=== PATIENT | female | born 1945 | race Caucasian/White ===

== ENCOUNTER 2017-12-05 14:35 | Outpatient (CLI) | payer MEDICARE | END 2017-12-05 14:36 | disposition home or self-care (01) | LOC: BICMAMMO 14:35 | PROVIDERS: ATTEND Family Medicine | DX: Z13.820 Encounter for screening for osteoporosis (principal); M85.80 Other specified disorders of bone density and structure, unspecified site; Z78.0 Asymptomatic menopausal state; Z12.31 Encounter for screening mammogram for malignant neoplasm of breast | CPT/HCPCS: 77063; 77067; 77080 ==

== ENCOUNTER 2018-04-12 20:30 | Outpatient (CLI) | payer MEDICARE | END 2018-04-12 20:31 | disposition home or self-care (01) | LOC: SLEEPLAB 20:30 | PROVIDERS: ATTEND Family Medicine | DX: G47.33 Obstructive sleep apnea (adult) (pediatric) (principal) | CPT/HCPCS: 95811 ==

== ENCOUNTER 2018-12-23 14:10 | Emergency (ER) | payer MEDICARE ==
[2018-12-23 14:57] LABS: Bilirubin Negative (Negative); Blood, Urine Trace (Negative); Clarity Slightly Cloudy (Clear); Glucose, Urine (Dipstick) Negative (Negative); Leukocyte Trace (Negative); Nitrite Negative (Negative); Protein, Urine (Dipstick) Trace mg/dL (Neg-Trace); Specific Gravity, Urine 1.015 (1.005-1.030); Urobilinogen 0.2 mg/dL (0.2-1.0)
[2018-12-23 14:59] LABS: Bacteria/HPF Rare-Few HPF (None Seen); RBC/HPF 0-3 HPF (0-3); Squamous Epithelial 0-3 HPF (0-3); WBC/HPF 0-3 HPF (0-3)
--- NOTE | 2018-12-23 15:18 | RAD ---
RIGHT FOOT 3 VIEWS: Date: 12/23/18 HISTORY: Foot pain. No history of injury. FINDINGS: There are arthritic changes of the first metatarsophalangeal joint and base of metatarsal. There are no signs of fracture or any other acute bony findings. IMPRESSION: No acute bony findings. POS: MEENA
== END 2018-12-23 15:27 | disposition home or self-care (01) ==
LOC: SCSER 14:10
DX: L03.115 Cellulitis of right lower limb (principal); E78.5 Hyperlipidemia, unspecified; I10 Essential (primary) hypertension; Z79.899 Other long term (current) drug therapy
CPT/HCPCS: 81003; 81015; 87086

== ENCOUNTER 2019-03-15 00:09 | Outpatient (CLI) | payer MEDICARE ==
[2019-03-15 09:48] LABS: #Eosinphils 0.2 thou/uL (0.0-0.7); #Monocytes 0.5 thou/uL (0.11-0.59); #Neutrophils 5.5 thou/uL (1.40-6.50); %Basophils 0.5 % (0.0-1.0); %Eosinophils 2.7 % (0.0-10.0); %Lymphocytes 24.3 % (21.0-51.0); %Monocytes 6.1 % (0.0-10.0); %Neutrophils 66.4 % (42.0-75.0); Hemoglobin 12.6 g/dL (12.0-16.0); Mean Corpuscular HGB CONC 32.7 g/dL (32.0-36.0); Mean Corpuscular Hemoglobin 29.7 pg (27.0-31.0); Mean Corpuscular Volume 90.8 fL (78.0-98.0); Mean Platelet Volume 9.9 fL (7.4-10.4); Platelet Count 213 thou/uL (130-400); Red Blood Cell (RBC) Count 4.24 mill/uL (4.20-5.40); White Blood Cell (WBC) Count 8.2 thou/uL (4.8-10.8)
[2019-03-15 09:49] LABS: Bilirubin Negative (Negative); Blood, Urine Negative (Negative); Clarity CLEAR (Clear); Glucose, Urine (Dipstick) Negative (Negative); Leukocyte Small (Negative); Nitrite Negative (Negative); Protein, Urine (Dipstick) Negative (Neg-Trace); Specific Gravity, Urine 1.013 (1.002-1.036); Urobilinogen 0.2 mg/dL (0.2-1.0); pH, Urine 5.5 (5.0-9.0)
[2019-03-15 09:52] LABS: Bacteria/HPF None Seen HPF (None Seen); Hyaline Casts/LPF 0-3 HYALINE CAST LPF (0-3 Hyaline); Pathc Cast-AUWi Flag 0.13 (0-2.49); RBC/HPF 0-3 HPF (0-3); Squamous Epithelial None Seen HPF (0-3); WBC/HPF 0-3 HPF (0-3)
[2019-03-15 09:56] LABS: Prothrombin Time 12.9 SEC (12.0-14.7)
[2019-03-15 10:09] LABS: Anion Gap 11 mmol/L (10-20); BUN (Urea Nitrogen) 21 mg/dL (9.8-20.1); Calc. Creatinine Clearance 0 mL/min (70-130); Calcium 10.1 mg/dL (7.8-10.44); Carbon Dioxide 28 mmol/L (23-31); Chloride 104 mmol/L (98-107); Estimated GFR-MDRD 57; Glucose 89 mg/dL (83-110); Potassium 3.8 mmol/L (3.5-5.1); Sodium 139 mmol/L (136-145)
--- NOTE | 2019-03-15 12:35 | RAD ---
XR Chest Pa Lat STANDARD HISTORY: Preoperative evaluation COMPARISON: None FINDINGS: The heart size is normal. The lungs are well expanded without focal areas of consolidation, pneumothorax or pleural effusions. IMPRESSION: No radiographic evidence of acute cardiopulmonary process.
--- NOTE | 2019-03-16 07:20 | EKG ---
Test Reason : Blood Pressure : / mmHG Vent. Rate : 059 BPM Atrial Rate : 059 BPM P-R Int : 162 ms QRS Dur : 084 ms QT Int : 410 ms P-R-T Axes : 066 016 040 degrees QTc Int : 405 ms Sinus bradycardia Normal ECG When compared with ECG of 22-MAY-2017 12:39, (Unconfirmed) No significant change was found Confirmed by ANDRES RAMÍREZ ([id number]) on 03/16/2019 7:20:31 AM Referred By: HARRY Confirmed By:ANDRES RAMÍREZ
== END 2019-03-15 00:10 | disposition home or self-care (01) ==
LOC: LABBT 00:09
PROVIDERS: ATTEND Orthopaedic Surgery
DX: Z01.818 Encounter for other preprocedural examination (principal); M17.12 Unilateral primary osteoarthritis, left knee
CPT/HCPCS: 71046; 80048; 81001; 85025; 85610; 85730; 87081; 93005; 93010

== ENCOUNTER 2019-04-17 08:56 | Inpatient (IN) | payer MEDICARE ==
[2019-03-15 09:39] VITALS: BMI 27.2
[2019-04-17] MEDS ORDERED: Bupivacaine/Epinephrine 0.25% 30 ML VIAL ONE (09:06)
[2019-04-17] MEDS ORDERED: Vancomycin HCl 1.5 GM in Sodium Chloride 0.9% 250 ML 300 ML IVPB SCH ×2 (09:30→22:00)
[2019-04-17] MEDS ORDERED: CEFAZOLIN 2 GM in Premix Bag 1 BAG IVPB SCH (09:30)
[2019-04-17] MEDS ORDERED: Tranexamic Acid 1,000 MG in Sodium Chloride 0.9% 100 ML IVPB SCH ×2 (09:30→12:15)
[2019-04-17 09:38] LABS: #Eosinphils 0.1 thou/uL (0.0-0.7); #Lymphocytes 1.3 thou/uL (1.20-3.40); #Monocytes 0.5 thou/uL (0.11-0.59); #Neutrophils 5.3 thou/uL (1.40-6.50); %Basophils 0.3 % (0.0-1.0); %Eosinophils 1.9 % (0.0-10.0); %Lymphocytes 17.7 % (21.0-51.0); %Monocytes 7.2 % (0.0-10.0); %Neutrophils 72.9 % (42.0-75.0); Hemoglobin 11.8 g/dL (12.0-16.0); Mean Corpuscular HGB CONC 34.1 g/dL (32.0-36.0); Mean Corpuscular Hemoglobin 30.8 pg (27.0-31.0); Mean Corpuscular Volume 90.3 fL (78.0-98.0); Mean Platelet Volume 9.4 fL (7.4-10.4); Platelet Count 203 thou/uL (130-400); RBC Distribution Width 12.7 % (11.5-14.5); Red Blood Cell (RBC) Count 3.83 mill/uL (4.20-5.40); White Blood Cell (WBC) Count 7.3 thou/uL (4.8-10.8)
[2019-04-17] MEDS ORDERED: Midazolam HCl 2 mg/2 ml Vial ONE (09:46)
[2019-04-17 09:47] LABS: Prothrombin Time 13.6 SEC (12.0-14.7)
[2019-04-17] MEDS ORDERED: Fentanyl 100 MCG/2 ML VIAL ONE ×2 (09:47→12:46)
[2019-04-17] MEDS ORDERED: Sodium Chloride 0.9% 100 ML ONE (09:50)
[2019-04-17] MEDS ORDERED: Tranexamic Acid 1,000 MG/10 ML VIAL ONE ×2 (09:50→12:41)
[2019-04-17 09:59] LABS: Anion Gap 13 mmol/L (10-20); BUN (Urea Nitrogen) 14 mg/dL (9.8-20.1); Calc. Creatinine Clearance 70 mL/min (70-130); Carbon Dioxide 26 mmol/L (23-31); Chloride 103 mmol/L (98-107); Estimated GFR-MDRD 57; Glucose 88 mg/dL (83-110); Potassium 3.9 mmol/L (3.5-5.1); Sodium 138 mmol/L (136-145)
[2019-04-17] MEDS ORDERED: Ketorolac Tromethamine 30 MG/ML VIAL IVP PRN ×2 (10:51→13:50)
[2019-04-17] MEDS ORDERED: Fentanyl 100 MCG/2 ML VIAL IV PRN (10:51)
[2019-04-17] MEDS ORDERED: Ondansetron PF 4 MG/2 ML Vial IVP PRN ×2 (10:51→13:50)
[2019-04-17] MEDS ORDERED: Zolpidem Tartrate 5 MG TAB PO PRN ×2 (10:51→13:50)
[2019-04-17] MEDS ORDERED: traMADol HCl 50 MG TAB PO PRN (10:51)
[2019-04-17] MEDS ORDERED: Promethazine HCl 25 MG/ML VIAL IM PRN ×3 (10:51→13:50)
[2019-04-17] MEDS ORDERED: Ropivacaine HCl/PF 250 ML in Premix Bag 1 BAG NERVE BLCK SCH (10:51)
[2019-04-17] MEDS ORDERED: Morphine 10 MG/ML VIAL ONE (11:01)
[2019-04-17] MEDS ORDERED: Promethazine HCl 25 MG/ML VIAL SLOW IVP PRN (11:11)
[2019-04-17] MEDS ORDERED: Ondansetron HCl/PF 4 MG/2 ML Vial IVP PRN (11:11)
[2019-04-17] MEDS ORDERED: Ropivacaine 0.5% HCl/PF (150 MG/30 ML VIAL) ONE (11:26)
[2019-04-17] MEDS ORDERED: Ropivacaine 0.2% HCl/PF (40 MG/20 ML VIAL) ONE (11:26)
[2019-04-17 11:35] LABS: Bilirubin Negative (Negative); Blood, Urine Negative (Negative); Clarity CLEAR (Clear); Glucose, Urine (Dipstick) Negative (Negative); Leukocyte Negative (Negative); Nitrite Negative (Negative); Protein, Urine (Dipstick) Negative (Neg-Trace); Specific Gravity, Urine 1.011 (1.002-1.036); Urobilinogen 0.2 mg/dL (0.2-1.0)
[2019-04-17 11:39] LABS: Bacteria/HPF None Seen HPF (None Seen); Hyaline Casts/LPF 0-3 HYALINE CAST LPF (0-3 Hyaline); Pathc Cast-AUWi Flag 0.27 (0-2.49); RBC/HPF 0-3 HPF (0-3); Squamous Epithelial None Seen HPF (0-3); WBC/HPF None Seen HPF (0-3)
[2019-04-17] MEDS ORDERED: Meperidine HCl/PF 25 MG/ML VIAL ONE (12:30)
--- NOTE | 2019-04-17 12:55 | RAD ---
LEFT KNEE 2 VIEWS: HISTORY: Total knee arthroplasty, postop FINDINGS: There are recent postoperative changes of total knee arthroplasty in good position and alignment. Sof t tissue air is present.
[2019-04-17] MEDS ORDERED: Lidocaine 1% PF 5 ML VIAL ONE (12:58)
[2019-04-17] MEDS ORDERED: PROPOFOL 200 MG/20 ML VIAL ONE (12:58)
[2019-04-17] MEDS ORDERED: Ondansetron PF 4 MG/2 ML Vial ONE (12:58)
[2019-04-17] MEDS ORDERED: Acetaminophen 325 MG TAB PO PRN (13:50)
[2019-04-17] MEDS ORDERED: diphenhydrAMINE 25 MG CAP PO PRN (13:50)
[2019-04-17] MEDS ORDERED: HYDROcodone/Acetaminophen 10/325 mg Tablet PO PRN ×2 (13:50)
[2019-04-17] MEDS ORDERED: Fentanyl 100 MCG/2 ML VIAL SLOW IVP PRN ×2 (13:50)
--- NOTE | 2019-04-17 14:19 | OP ---
DATE OF PROCEDURE: 04/17/2019 PREOPERATIVE DIAGNOSIS: Left knee valgus osteoarthritis. POSTOPERATIVE DIAGNOSIS: Left knee valgus osteoarthritis. PROCEDURE PERFORMED: Left total knee arthroplasty. BOTTLED BEVERAGE INSPECTOR: Dave Garcia PA-C ANESTHESIA: The patient received an LMA with an adductor canal catheter with a single shot lateral sciatic. ESTIMATED BLOOD LOSS: 100 mL. TOURNIQUET TIME: 74 minutes at 300 mmHg. ANTIBIOTICS: Ancef 2 g, vancomycin 1.5, TXA 1 g, and [place] tobramycin antibiotic Simplex one dose. IMPLANTS: Treasure size 5 CR femur, an 8 x 32 patella, a size 5 tibial base plate, and a 5 with 9 mm CS poly. COMPLICATIONS: None. INDICATIONS FOR PROCEDURE: Ms. Ortega is a pleasant 73-year-old female, who presents to me with several years of left knee pain. The patient had a valgus knee arthritis. She desired for left knee arthroplasty. She understood the risks and benefits of surgery to include pain, scar, bleeding, infection, damage to vital structures, decreased range of motion and strength, nonunion, malunion, fracture above or below the stem, further surgery, and loss of life or limb. The patient understood the risks and benefits of the procedure and elected to proceed. DESCRIPTION OF PROCEDURE: Time-out was performed designating the patient's left lower extremity as the operative site based on site, consents, and marking. After time-out, the patient's left lower extremity was prepped and draped in sterile fashion. The tourniquet was brought up and left up for a total of 74 minutes. Anterior midline incision was made. Medial patellar arthrotomy was performed. I excised the fat pad, exposed the tibia and femur, mapped out the femur cut, 0 degrees of varus and valgus, one laterally, eight medially, 4 degrees of slope. We placed our 3-degree external rotation guide and mapped it out. A 6 was just slightly too big and 5 left with a small notch. We felt like we had a good overall alignment. We cut for a 5, cut anterior, posterior and chamfer cuts, removed osteophytes, and exposed the patient's tibia. After we released the ACL and placed our pickle fork in position, we cut 0 degree of varus, 1 degree of valgus, and 4 degrees of posterior slope. We removed the osteophytes. We put a laminar aircraft time clerk removing the lateral meniscus. With the PCL released, we ensured we had overall good position of the patient's knee. We had good alignment. We then placed our size 5 tibial tray, which we had to float to good position based off our femur floated in position. We overall had good alignment, flexion and extension, varus and valgus stability. We then removed the cup in place, cut our patella down from about 24 down to about 13, placed an 8 x 32 patella with overall good alignment and tracking. We had to laterally smooth the osteophytes to help with our patellar tracking and then washed. We cemented our tibia and posterior poly, cemented our femur, and removed excess cement on both. We cemented our patella, removed excess cement, and washed. We ensured that all cement had been removed, came back, washed and closed with #2 Vicryl, 2 Quill, 0 Quill, 2-0 Stratafix, and glue. The patient will be admitted per [facility] protocol. Weightbearing as tolerated. We will follow her in-house. Job ID: [id number]
--- NOTE | 2019-04-17 15:25 | PDOC.EVN ---
Addendum - Attending - Attending Attestation Date/Time: 04/17/19 1520 I personally evaluated the patient and discussed the management with Dr. Berry. I agree with the History, Examination, Assessment and Plan documented in her consult note with any addition or exceptions noted below. Patient here for orthopedic surgery. We have been consulted for medical mgmt. Will resume home meds for chronic conditions and be available for acute changes to medical conditions as needed. Dispo per primary team and will anticipate patient being medically stable for dc whenever primary team is comfortable with discharge.
[2019-04-17] MEDS: Sodium Chloride 0.9% 1,000 ML IV SCH (15:50)
[2019-04-17] MEDS: HYDROcodone/Acetaminophen 10/325 mg Tablet PO PRN (18:03)
[2019-04-17] MEDS: CEFAZOLIN 2 GM in Premix Bag 1 BAG IVPB SCH (18:04)
[2019-04-17] MEDS: Aspirin 81 mg Enteric Coated Tablet PO SCH (19:58)
[2019-04-17] MEDS: Atorvastatin Calcium 10 MG TAB PO SCH ×2 (19:58)
--- NOTE | 2019-04-17 20:59 | CON ---
DATE OF CONSULTATION: 04/17/2019 We were consulted by Dr. Mccracken for medical management. I appreciate the opportunity to take care of this patient. HISTORY OF PRESENT ILLNESS: Stella Ortega is a 73-year-old female with past medical history of hypertension, hyperlipidemia, cluster headaches, obstructive sleep apnea, and peptic ulcer disease, who presented for a left total knee replacement. The patient had a left total knee replacement performed today by Dr. Mccracken with no complications noted during surgery. The patient reports that she is feeling well at this time with her pain very well controlled. The patient denies any other complaints today. REVIEW OF SYSTEMS: GENERAL: Denies fever or chills. EYES: Denies vision changes, eye pain HENT: Denies sore throat, rhinorrhea, or ear pain. CARDIOVASCULAR: Denies chest pain or edema. RESPIRATORY: Denies shortness of breath or cough. ABDOMEN: Denies abdominal pain, nausea, vomiting, or diarrhea. : Denies dysuria or hematuria. MUSCULOSKELETAL: Reports left knee pain. Denies other muscle aches or pains. NEUROLOGIC: Denies any weakness, numbness, syncope, seizures, or headaches. PSYCHIATRIC: Denies anxiety or depression. DERM: Denies new rashes or lesions PAST MEDICAL HISTORY: 1. Peptic ulcer disease. 2. Obstructive sleep apnea. 3. Cluster headaches. 4. Osteopenia. 5. Hyperlipidemia. 6. Hypertension. 7. Allergic rhinitis. PAST SURGICAL HISTORY: 1. Hysterectomy. 2. Appendectomy. 3. Tonsillectomy. 4. Left eye corneal transplant. 5. Left total knee replacement done on 04/17/2019. MEDICATIONS: 1. Omeprazole 40 mg p.o. daily. 2. Rizatriptan 10 mg p.o. p.r.n. headaches. 3. Atenolol 50 mg p.o. daily. 4. Zyrtec 10 mg p.o. daily. 5. Enalapril and hydrochlorothiazide 10/25 mg daily. 6. Simvastatin 20 mg p.o. at bedtime. 7. Potassium chloride 20 mEq daily. ALLERGIES: ERYTHROMYCIN BASE. FAMILY HISTORY: 1. Mother with coronary artery disease. 2. Father with hypertension. 3. Sister with liver cancer. SOCIAL HISTORY: The patient reports that she smoked in college, but denies any recent tobacco, alcohol, or drug use. The patient reports she lives alone. 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 PRIMARY CARE PHYSICIAN: Dr. Cain. PHYSICAL EXAMINATION: VITAL SIGNS: Blood pressure 157/84, pulse 75, respiratory rate 16, temperature 97.2, and O2 saturations 100% on 2 L nasal cannula. GENERAL: Alert, oriented, resting comfortably in bed, on 2 L nasal cannula. HEENT: Moist mucous membranes. Oropharynx, no erythema or exudates. NECK: Supple. No lymphadenopathy. No thyroid nodules or thyromegaly. CARDIOVASCULAR: Regular rate and rhythm. No murmurs, gallops, or rubs. No peripheral edema. 2+ radial and pedal pulses bilaterally. RESPIRATORY: No use of accessory muscles of respiration. Clear to auscultation bilaterally. No wheezes. ABDOMEN: No abdominal distention. Normoactive bowel sounds. No tenderness to palpation. No guarding. MUSCULOSKELETAL: Left knee with dressing wrap in place. Full range of motion of all other extremities. DERMATOLOGY: No abnormal rashes, lesions, bruising, or bleeding. PSYCHIATRIC: Euthymic mood. Congruent affect. Alert and oriented. NEUROLOGIC: Sensation grossly within normal limits. Motor 5/5 in all extremities. Cranial nerves 2 through 12 are intact. LABORATORY VALUES: White blood cells 7.3, hemoglobin 11.8, hematocrit 34.6, platelet count 203. PT 13.6, INR 1.0, PTT 33.0. Sodium 138, potassium 3.9, chloride 103, CO2 of 26, BUN 14, creatinine 0.95, GFR 57, glucose 88, calcium 10.0. Urinalysis within normal limits. IMAGING: Knee x-ray showed recent postoperative changes of total knee arthroplasty and good position and alignment. Soft tissue air present. ASSESSMENT AND PLAN: This is a 73-year-old female, whom we are consulted for medical management after a left total knee replacement. 1. Left total knee replacement. We will defer to primary team for pain management and postoperative management. 2. Hypertension. We will restart home enalapril and hydrochlorothiazide and monitor blood pressures closely. 3. Hyperlipidemia. We will restart home simvastatin. 4. Obstructive sleep apnea. The patient brought CPAP from home. We will restart this at bedtime. 5. Peptic ulcer disease. We will start pantoprazole. The patient with no complaints at this time. 6. Cluster headache. The patient denies any current headaches. We will treat if the patient develops one. This patient was seen and evaluated with Dr. Palmer, who agrees with the plan as stated above. We appreciate the opportunity to participate in the care of this patient. Job ID: [id number] MTDD
[2019-04-18] MEDS: Sodium Chloride 0.9% 1,000 ML IV SCH ×3 (01:34→20:45)
[2019-04-18] MEDS: CEFAZOLIN 2 GM in Premix Bag 1 BAG IVPB SCH (01:58)
[2019-04-18] MEDS: HYDROcodone/Acetaminophen 10/325 mg Tablet PO PRN ×3 (03:34→15:38)
[2019-04-18 05:53] LABS: Mean Corpuscular HGB CONC 31.7 g/dL (32.0-36.0); Mean Corpuscular Hemoglobin 29.3 pg (27.0-31.0); Mean Corpuscular Volume 92.4 fL (78.0-98.0); Mean Platelet Volume 10.1 fL (7.4-10.4); Platelet Count 152 thou/uL (130-400); RBC Distribution Width 12.7 % (11.5-14.5); Red Blood Cell (RBC) Count 3.42 mill/uL (4.20-5.40); White Blood Cell (WBC) Count 12.3 thou/uL (4.8-10.8)
[2019-04-18] MEDS: Potassium Chloride 20 MEQ TAB PO SCH ×2 (08:20→08:25)
[2019-04-18] MEDS: Atenolol 50 MG TAB PO SCH ×2 (08:20→08:23)
[2019-04-18] MEDS: Calcium Carbonate + Vit D 1 TAB PO SCH (08:21)
[2019-04-18] MEDS: Aspirin 81 mg Enteric Coated Tablet PO SCH ×2 (08:21→20:45)
[2019-04-18] MEDS: Ascorbic Acid 500 mg Chewable Tablet PO SCH (08:21)
[2019-04-18] MEDS: Hydrochlorothiazide 25 MG TAB PO SCH (08:21)
[2019-04-18] MEDS: Senokot S 8.6-50 MG TAB PO SCH ×2 (08:21→20:36)
[2019-04-18] MEDS: Ferrous Gluconate 324 MG TAB PO SCH ×2 (08:22→18:49)
[2019-04-18] MEDS: Fluorometholone 0.1% Ophth Soln 5 ml Bottle L EYE SCH (08:24)
[2019-04-18] MEDS: Multivitamin W/ Minerals 1 TAB PO SCH (08:25)
[2019-04-18] MEDS ORDERED: FLUOROMETHOLONE L EYE SCH (09:00)
[2019-04-18] MEDS ORDERED: DEXT R EYE SCH (09:00)
[2019-04-18] MEDS ORDERED: Non-Formulary Item 1 EACH (Enalapril/Hydrochlorothiazide [Enalapril-Hctz 10-25 Mg Tablet] PO SCH (09:00)
[2019-04-18] MEDS ORDERED: TETRAHYDRZ R EYE SCH (09:00)
[2019-04-18] MEDS ORDERED: PVP R EYE SCH (09:00)
[2019-04-18] MEDS ORDERED: PEG R EYE SCH (09:00)
--- NOTE | 2019-04-18 09:07 | PDOC.FM ---
- Subjective Subjective: Patient reports left knee pain. She was examined sitting up in the chair. She denies urinating since burnham catheter was removed. She is tolerating PO well, denies N/V. She reports that she slept well overnight. Denies headache, vision changes, chest pain, SOB. - Objective MAR Reviewed: Yes Vital Signs & Weight: Vital Signs (12 hours) Temp Pulse Resp BP BP Pulse Ox 04/18/19 08:23 84 138/55 L 04/18/19 08:22 98.3 F 84 20 138/55 L 93 L 04/18/19 08:20 98 04/18/19 04:19 99.3 F 98 16 120/56 L 93 L 04/18/19 00:37 98 F 70 16 117/47 L 98 Weight Weight 86.183 kg I&O: 04/17/19 04/18/19 04/19/19 06:59 06:59 06:59 Intake Total 1000 1010 Output Total 500 400 Balance 500 610 Result Diagrams: 04/18/19 05:12 04/17/19 09:31 Phys Exam - Physical Examination Constitutional: NAD HEENT: moist MMs, sclera anicteric Respiratory: no wheezing, no rales, no rhonchi, clear to auscultation bilateral Cardiovascular: RRR, no significant murmur, no rub Gastrointestinal: soft, non-tender, no distention, positive bowel sounds Musculoskeletal: no edema, pulses present dressing in place over left knee Neurological: non-focal, moves all 4 limbs Psychiatric: normal affect, A&O x 3 Skin: normal turgor, cap refill <2 seconds Dx/Plan (1) History of total left knee replacement (TKR) Code(s): Z96.652 - PRESENCE OF LEFT ARTIFICIAL KNEE JOINT Status: Acute Plan: Defer to primary team for post-op management and pain control -Continue PT/OT -Pt desires placement at [facility] after d/c for further PT (2) HTN (hypertension) Code(s): I10 - ESSENTIAL (PRIMARY) HYPERTENSION Status: Acute Plan: BP's WNL Restarted home enalapril-HCTZ and atenalol (3) CARMENZA (obstructive sleep apnea) Code(s): G47.33 - OBSTRUCTIVE SLEEP APNEA (ADULT) (PEDIATRIC) Status: Acute Plan: Plan to resume nighttime CPAP tonight (4) HLD (hyperlipidemia) Code(s): E78.5 - HYPERLIPIDEMIA, UNSPECIFIED Status: Acute Plan: Continue simvastatin (5) PUD (peptic ulcer disease) Code(s): K27.9 - PEPTIC ULC, SITE UNSP, UNSP AC OR CHR, W/O HEMOR OR PERF Status: Acute Plan: Continue protonix, asymptomatic currently (6) Cluster headache Status: Acute Qualifiers: Headache chronicity pattern: episodic headache Intractability: not intractable Qualified Code(s): G44.019 - Episodic cluster headache, not intractable Plan: No current symptoms. Will give triptan prn headache - Plan Plan: Dispo pending primary team Addendum - Attending - Attending Attestation Date/Time: 04/18/19 8556 I personally evaluated the patient and discussed the management with Dr. Brery. I agree with the History, Examination, Assessment and Plan documented above with any addition or exceptions noted below. L TKR- recovering well. HTN- stable CARMENZA-start CPAP tonight Goal is to transition to SNF.
[2019-04-18] MEDS: traMADol HCl 50 MG TAB PO PRN ×2 (11:12→18:48)
[2019-04-18] MEDS: Atorvastatin Calcium 10 MG TAB PO SCH ×2 (20:37)
[2019-04-19] MEDS: Sodium Chloride 0.9% 1,000 ML IV SCH ×2 (05:08→18:16)
[2019-04-19] MEDS: traMADol HCl 50 MG TAB PO PRN (05:20)
[2019-04-19 05:55] LABS: Mean Corpuscular HGB CONC 33.6 g/dL (32.0-36.0); Mean Corpuscular Hemoglobin 30.9 pg (27.0-31.0); Mean Corpuscular Volume 91.9 fL (78.0-98.0); Mean Platelet Volume 10.5 fL (7.4-10.4); Platelet Count 131 thou/uL (130-400); RBC Distribution Width 12.7 % (11.5-14.5); Red Blood Cell (RBC) Count 3.24 mill/uL (4.20-5.40); White Blood Cell (WBC) Count 14.3 thou/uL (4.8-10.8)
--- NOTE | 2019-04-19 08:54 | PDOC.FM ---
- Subjective Subjective: Patient reports her pain is a little improved, but she had very bad pain during PT yesterday. She slept well overnight and is tolerating PO well. Denies chest pain, SOB, H/A, vision changes, swelling. - Objective MAR Reviewed: Yes Vital Signs & Weight: Vital Signs (12 hours) Temp Pulse Resp BP Pulse Ox 04/19/19 08:23 98.6 F 97 16 137/73 97 04/19/19 04:08 99.4 F 96 16 152/74 H 93 L 04/19/19 00:21 98.5 F 89 16 146/75 H 93 L Weight Admit Weight 86.183 kg Weight 86.183 kg I&O: 04/18/19 04/19/19 04/20/19 06:59 06:59 06:59 Intake Total 1000 1510 Output Total 500 400 Balance 500 1110 Result Diagrams: 04/19/19 04:53 04/17/19 09:31 Phys Exam - Physical Examination Constitutional: NAD HEENT: moist MMs, sclera anicteric Neck: no nodes, supple Respiratory: no wheezing, no rales, no rhonchi, clear to auscultation bilateral Cardiovascular: RRR, no significant murmur, no rub Gastrointestinal: soft, non-tender, no distention, positive bowel sounds Musculoskeletal: no edema, pulses present dressing in place over left knee Neurological: non-focal, moves all 4 limbs Psychiatric: normal affect, A&O x 3 Skin: normal turgor, cap refill <2 seconds Dx/Plan (1) History of total left knee replacement (TKR) Code(s): Z96.652 - PRESENCE OF LEFT ARTIFICIAL KNEE JOINT Status: Acute Plan: Defer to primary team for post-op management and pain control -Continue PT/OT -Pt desires placement at [facility] after d/c for further PT (2) HTN (hypertension) Code(s): I10 - ESSENTIAL (PRIMARY) HYPERTENSION Status: Acute Plan: BP's WNL Restarted home enalapril-HCTZ and atenalol (3) CARMENZA (obstructive sleep apnea) Code(s): G47.33 - OBSTRUCTIVE SLEEP APNEA (ADULT) (PEDIATRIC) Status: Acute Plan: Continue CPAP at night (4) HLD (hyperlipidemia) Code(s): E78.5 - HYPERLIPIDEMIA, UNSPECIFIED Status: Acute Plan: Continue simvastatin (5) PUD (peptic ulcer disease) Code(s): K27.9 - PEPTIC ULC, SITE UNSP, UNSP AC OR CHR, W/O HEMOR OR PERF Status: Acute Plan: Continue protonix, asymptomatic currently (6) Cluster headache Status: Acute Qualifiers: Headache chronicity pattern: episodic headache Intractability: not intractable Qualified Code(s): G44.019 - Episodic cluster headache, not intractable Plan: No current symptoms. Will give triptan prn headache Addendum - Attending - Attending Attestation Date/Time: 04/19/19 9472 I personally evaluated the patient and discussed the management with Dr. Berry I agree with the History, Examination, Assessment and Plan documented above with any addition or exceptions noted below.
[2019-04-19] MEDS: Senokot S 8.6-50 MG TAB PO SCH ×2 (09:12→21:25)
[2019-04-19] MEDS: Calcium Carbonate + Vit D 1 TAB PO SCH (09:12)
[2019-04-19] MEDS: Atenolol 50 MG TAB PO SCH ×2 (09:12→09:18)
[2019-04-19] MEDS: Potassium Chloride 20 MEQ TAB PO SCH ×2 (09:13→09:18)
[2019-04-19] MEDS: Aspirin 81 mg Enteric Coated Tablet PO SCH ×2 (09:13→21:25)
[2019-04-19] MEDS: HYDROcodone/Acetaminophen 10/325 mg Tablet PO PRN ×2 (09:13→18:17)
[2019-04-19] MEDS: Ascorbic Acid 500 mg Chewable Tablet PO SCH (09:13)
[2019-04-19] MEDS: Multivitamin W/ Minerals 1 TAB PO SCH (09:13)
[2019-04-19] MEDS: Ferrous Gluconate 324 MG TAB PO SCH ×2 (09:14→18:17)
[2019-04-19] MEDS: Fluorometholone 0.1% Ophth Soln 5 ml Bottle L EYE SCH (09:18)
[2019-04-19] MEDS: Hydrochlorothiazide 25 MG TAB PO SCH (09:18)
[2019-04-19] MEDS: Atorvastatin Calcium 10 MG TAB PO SCH ×2 (21:25→21:26)
[2019-04-20] MEDS: Sodium Chloride 0.9% 1,000 ML IV SCH (02:04)
[2019-04-20] MEDS: traMADol HCl 50 MG TAB PO PRN ×2 (02:05→08:48)
[2019-04-20 05:54] LABS: Hemoglobin 9.2 g/dL (12.0-16.0); Mean Corpuscular Hemoglobin 30.5 pg (27.0-31.0); Mean Corpuscular Volume 92.3 fL (78.0-98.0); Mean Platelet Volume 10.1 fL (7.4-10.4); Platelet Count 149 thou/uL (130-400); RBC Distribution Width 12.7 % (11.5-14.5); Red Blood Cell (RBC) Count 3.02 mill/uL (4.20-5.40); White Blood Cell (WBC) Count 11.8 thou/uL (4.8-10.8)
[2019-04-20] MEDS: HYDROcodone/Acetaminophen 10/325 mg Tablet PO PRN ×2 (06:16→11:26)
--- NOTE | 2019-04-20 08:19 | PDOC.FM ---
- Subjective Subjective: Patient reports her pain is well controlled and she has been working with PT. She is tolerating PO, denies chest pain, SOB, headache, N/V, vision changes. She intends on going to [facility] upon discharge. - Objective MAR Reviewed: Yes Vital Signs & Weight: Vital Signs (12 hours) Temp Pulse Resp BP Pulse Ox 04/20/19 04:18 98.7 F 88 15 144/64 H 97 04/20/19 00:24 98.2 F 82 15 122/74 95 04/19/19 21:04 98.5 F 84 16 120/61 95 Weight Admit Weight 86.183 kg Weight 86.183 kg I&O: 04/19/19 04/20/19 04/21/19 06:59 06:59 06:59 Intake Total 1510 500 Output Total 400 Balance 1110 500 Result Diagrams: 04/20/19 05:10 04/17/19 09:31 Phys Exam - Physical Examination Constitutional: NAD HEENT: moist MMs, sclera anicteric Respiratory: no wheezing, no rales, no rhonchi, clear to auscultation bilateral Cardiovascular: RRR, no significant murmur, no rub Gastrointestinal: soft, non-tender, no distention, positive bowel sounds Musculoskeletal: no edema, pulses present dressing in place over left knee Neurological: non-focal, moves all 4 limbs Psychiatric: normal affect, A&O x 3 Skin: normal turgor, cap refill <2 seconds Dx/Plan (1) History of total left knee replacement (TKR) Code(s): Z96.652 - PRESENCE OF LEFT ARTIFICIAL KNEE JOINT Status: Acute Plan: Defer to primary team for post-op management and pain control -Continue PT/OT -Pt desires placement at [facility] after d/c for further PT (2) HTN (hypertension) Code(s): I10 - ESSENTIAL (PRIMARY) HYPERTENSION Status: Acute Plan: BP's well controlled Restarted home enalapril-HCTZ and atenalol (3) CARMENZA (obstructive sleep apnea) Code(s): G47.33 - OBSTRUCTIVE SLEEP APNEA (ADULT) (PEDIATRIC) Status: Acute Plan: Continue CPAP at night (4) HLD (hyperlipidemia) Code(s): E78.5 - HYPERLIPIDEMIA, UNSPECIFIED Status: Acute Plan: Continue simvastatin (5) PUD (peptic ulcer disease) Code(s): K27.9 - PEPTIC ULC, SITE UNSP, UNSP AC OR CHR, W/O HEMOR OR PERF Status: Acute Plan: Continue protonix, asymptomatic currently (6) Cluster headache Status: Acute Qualifiers: Headache chronicity pattern: episodic headache Intractability: not intractable Qualified Code(s): G44.019 - Episodic cluster headache, not intractable Plan: No current symptoms. Will give triptan prn headache - Plan Plan: Anticipate d/c to [facility] today pending primary team recs. Will send with home med list.
[2019-04-20] MEDS: Potassium Chloride 20 MEQ TAB PO SCH ×2 (08:46→08:49)
[2019-04-20] MEDS: Senokot S 8.6-50 MG TAB PO SCH (08:46)
[2019-04-20] MEDS: Ferrous Gluconate 324 MG TAB PO SCH (08:46)
[2019-04-20] MEDS: Multivitamin W/ Minerals 1 TAB PO SCH (08:46)
[2019-04-20] MEDS: Calcium Carbonate + Vit D 1 TAB PO SCH (08:46)
[2019-04-20] MEDS: Aspirin 81 mg Enteric Coated Tablet PO SCH (08:46)
[2019-04-20] MEDS: Ascorbic Acid 500 mg Chewable Tablet PO SCH (08:46)
[2019-04-20] MEDS: Atenolol 50 MG TAB PO SCH ×2 (08:46→08:47)
[2019-04-20] MEDS: Hydrochlorothiazide 25 MG TAB PO SCH (08:48)
[2019-04-20] MEDS: Fluorometholone 0.1% Ophth Soln 5 ml Bottle L EYE SCH (08:49)
--- NOTE | 2019-04-20 11:16 | PRG ---
DATE OF SERVICE: 04/20/2019 We were asked to manage Ms. Ortega's medical problems including blood pressure. It has been well controlled, and this morning, it was 138/55. She is being transferred to rehab this morning. Job ID: [id number]
[2019-04-20 12:23] VITALS: BP 133/73; TEMP 98.1
== END 2019-04-20 11:45 | DRG 470 ==
LOC: SDC 08:56 → OBSVTOIN 13:25 → SJJU 13:25
PROVIDERS: ADMIT Orthopaedic Surgery; ATTEND Orthopaedic Surgery
PROC: 0SRD0J9 Replacement of Left Knee Joint with Synthetic Substitute, Cemented, Open Approach (ICD-10-PCS; principal; 2019-04-17)
DX: M17.12 Unilateral primary osteoarthritis, left knee (principal); I10 Essential (primary) hypertension; E78.5 Hyperlipidemia, unspecified; G47.33 Obstructive sleep apnea (adult) (pediatric); K27.9 Peptic ulcer, site unspecified, unspecified as acute or chronic, without hemorrhage or perforation; G44.019 Episodic cluster headache, not intractable; Z90.710 Acquired absence of both cervix and uterus; Z90.49 Acquired absence of other specified parts of digestive tract; Z90.89 Acquired absence of other organs; Z94.7 Corneal transplant status; Z88.1 Allergy status to other antibiotic agents
CPT/HCPCS: 36415; 80048; 85025; 85027; 85610; 85730; 86850; 86900; 86901; 87086; C1713; C1776; J0690; J1885; J2001; J2175; J2250; J2270; J2405; J2704; J2795; J3010; J3370; J3490; J7050

== ENCOUNTER 2021-03-25 14:04 | Outpatient (CLI) | payer MEDICARE | END 2021-03-25 14:05 | disposition home or self-care (01) | LOC: BICMAMMO 14:04 | PROVIDERS: ATTEND Family Medicine | DX: Z12.31 Encounter for screening mammogram for malignant neoplasm of breast (principal); Z13.820 Encounter for screening for osteoporosis; M85.89 Other specified disorders of bone density and structure, multiple sites | CPT/HCPCS: 77063; 77067; 77080 ==

== ENCOUNTER 2022-05-06 12:13 | Outpatient (CLI) | payer MEDICARE | END 2022-05-06 12:14 | disposition home or self-care (01) | LOC: BICMAMMO 12:13 | PROVIDERS: ATTEND Family Medicine | DX: Z12.31 Encounter for screening mammogram for malignant neoplasm of breast (principal) | CPT/HCPCS: 77063; 77067 ==

== ENCOUNTER 2023-05-25 16:05 | Outpatient (CLI) | payer MEDICARE | END 2023-05-25 16:06 | disposition home or self-care (01) | LOC: BICMAMMO 16:05 | PROVIDERS: ATTEND Family Medicine | DX: Z12.31 Encounter for screening mammogram for malignant neoplasm of breast (principal) | CPT/HCPCS: 77063; 77067 ==